=== PATIENT | female | born 1975 | race Caucasian/White ===

== ENCOUNTER 2024-04-08 19:10 | Emergency (ER) | payer OTHER, SELFPAY ==
--- NOTE | ~2024-04-08 | XR_ITS ---
[id number] DATE: 04/08/2024 19:35 INDICATION: Twisting injury with medial pain TECHNIQUE: AP and lateral views COMPARISON: None FINDINGS: No fracture or dislocation or significant joint effusion is detected. Joint spaces appear w ell preserved. No radiopaque intra-articular loose body or chondrocalcinosis. IMPRESSION: No significant abnormality Reviewed, dictated and finalized at [facility] Reviewed, dictated and finalized at [facility] IMPRESSION: No significant abnormality
--- NOTE | 2024-04-08 19:12 | ED.LOWEXIN ---
HPI - Extremity Injury (Lower) General Chief Complaint: Extremity Injury, Lower Stated Complaint: left knee injury Time Seen by Provider: 04/08/24 19:24 Source: patient, RN notes reviewed and old records reviewed Mode of arrival: ambulatory Limitations: no limitations History of Present Illness HPI Narrative: 48-year-old female presents to the [facility] with left knee pain. Patient states this afternoon she was outside with her dog when she felt a pop. Has a brace in place. No other treatment prior to arrival. No erythema, ecchymosis noted. Mild swelling noted to the lateral lower aspect. Related Data Allergies Allergy/AdvReac Type Severity Reaction Status Date / Time No Known Allergies Allergy Unverified 02/20/17 11:21 Review of Systems Review of Systems: All systems reviewed & are unremarkable except as noted in HPI and below Constitutional: Constitutional: Reports no additional constitutional complaints ENT: Reports system reviewed and no additional complaints, except as documented Cardiovascular: Cardiovascular: Reports no additional cardiovascular complaints, Denies chest pain and Denies dyspnea Respiratory: Respiratory: Reports no additional respiratory complaints, Denies chest congestion, Denies cough and Denies dyspnea Gastrointestinal: Gastrointestinal: Reports no additional gastrointestinal complaints, Denies abdominal pain, Denies nausea and Denies vomiting Musculoskeletal: Musculoskeletal: Reports as per HPI and Reports arthralgias Integumentary/Breasts: Skin/Breast: Reports system reviewed and no additional complaints, except as [facility]u [facility] Family History Family History Mother Hypertension Other Acute myocardial infarction Diabetes mellitus Social History Social History Smoking status: Never smoker Alcohol intake: never Comments At the time of my signature, I reviewed and agree with the nursing past medical, surgical, social, and family history. There is no relevant family history pertinent to the patient complaint. Exam Const: General: cooperative, healthy appearing, comfortable, no acute distress, well developed, alert and well nourished Nutritional Appearance: well nourished Orientation/consciousness: patient oriented x3 Limitations: no limitations HENMT: Head: normal to inspection Ears: hearing grossly normal bilaterally and external ears normal Face/Nose/Sinus: Normal external nose present, normal facial exam and face symmetric Face and sinus: normal facial exam and face symmetric Eyes: General: appearance normal, both eyes and all related structures Alignment and Position: alignment normal Periorbital: periorbital findings normal Neck: Neck: normal visual inspection, full ROM, no lymphadenopathy and no meningeal signs Chest: Chest palpation & inspection: normal inspection of the chest Resp: Effort & Inspection: normal respiratory effort and able to speak in complete sentences Cardio: Rate: regular rate Skin: General skin exam: normal color and no rashes or lesions noted Lesions: no lesions Rashes: no rashes Wounds: no wounds Neuro: General: patient oriented x3, gait normal, tone normal, moves all extremities and no meningeal signs Cognition (Neuro): normal cognition Speech: normal speech Gait exam (Neuro): Normal gait present Extrem: General: normal to inspection, full ROM, capillary refill normal and normal gait Left lower extremity: normal capillary refill and knee Details: tenderness (medial lower), swelling (lateral lower ) and normal ROM Psych: Appearance: grossly normal and well kempt Mental Status: mental status grossly normal Speech and movement: Normal speech and movement present and Clear speech present Affect: normal affect Attitude: cooperative Course Course Level of Care: Express Care Visit Vital Signs Vital signs: Vital Signs Temperature 98.5 F 04/08/24 19:24 Pulse Rate 81 04/08/24 19:24 Respiratory Rate 16 04/08/24 19:24 Blood Pressure 135/64 04/08/24 19:24 Pulse Oximetry 100 04/08/24 19:24 Oxygen Delivery Room Air 04/08/24 19:24 Temperature 98.5 F 04/08/24 19:24 Pulse Rate 81 04/08/24 19:24 Respiratory Rate 16 04/08/24 19:24 Blood Pressure 135/64 04/08/24 19:24 Pulse Oximetry 100 04/08/24 19:24 Oxygen Delivery Room Air 04/08/24 19:24 Reviewed MDM - Extremity Injury (Lower) MDM Narrative Medical decision making narrative: Patient sitting comfortably in exam room. Nontoxic, vitals stable. Patient in no acute distress Patient presents with knee pain after hearing a pop this afternoon X-ray negative for acute findings Patient already has a knee brace Patient given handouts for primary care providers Patient appropriate for outpatient treatment of knee sprain Discharge instructions reviewed with patient, as well as provided in writing per nursing staff. The instructions also include specific and strict return/GO TO THE ER as well as f/u information. All questions have been answered, and the patient deny any further questions with discharge and discharge plan. Some parts of this dictation were generated by voice recognition software and may contain typographical and/or grammatical inaccuracies. Differential Diagnosis Differential diagnosis: Likely other (Fracture, sprain) Imaging Data Radiologist's impression: [id number] DATE: 04/08/2024 19:35 INDICATION: Twisting injury with medial pain TECHNIQUE: AP and lateral views COMPARISON: None FINDINGS: No fracture or dislocation or significant joint effusion is detected. Joint spaces appear well preserved. No radiopaque intra-articular loose body or chondrocalcinosis. IMPRESSION: No significant abnormality Critical Care Time Critical Care Time Critical Care Time: No Discharge Plan Discharge Clinical Impression: Left knee sprain Patient Disposition: Home, Self-Care Condition: Stable Instructions: Antibiotic Form, Knee Sprain (ED) Additional Instructions: Your Xray did not show a fracture. Wear good supportive shoes at all times. Ice should be applied to help reduce swelling. It can be used for 20 to 30 minutes, every 2-3 hours while awake. Do not apply ice directly to your skin. A knee brace can help some support the injury. You can alternate ibuprofen 600mg and Tylenol 650mg every 4 hours as needed for pain Please schedule a follow-up visit with your personal physician for further evaluation and treatment within 2 weeks especially if symptoms persist. If you are having a hard time finding a physician please call our [facility] liaison at [phone]. For new or worsening symptoms go directly to the emergency room Patient Language: Mongolian Follow-up/Referrals: PHYSICIAN,SMALL EQUIPMENT OPERATOR [Primary Care Provider] - Stand Alone Forms: Work/School Release IP Time of Disposition: 19:41
[2024-04-08 19:24] VITALS: BP 135/64; PULSE 81; RESP 16; TEMP 36.9; O2SAT 100
== END 2024-04-08 19:53 | disposition home or self-care (01) ==
PROVIDERS: Emergency Provider Nurse Practitioner
DX: S83.92XA Sprain of unspecified site of left knee, initial encounter (principal); X58.XXXA Exposure to other specified factors, initial encounter
CPT/HCPCS: 73560; 99213; G0463